=== PATIENT | male | born 2000 | race Caucasian/White ===

== ENCOUNTER 2024-05-03 12:57 | Emergency (ER) | payer OTHER, SELFPAY ==
[2024-05-03 13:10] VITALS: BP 122/74
--- NOTE | 2024-05-03 14:29 | ED.GENMED ---
History of Present Illness
General
Chief Complaint: Musculo-Skeletal Complaint
Source: patient
Time Seen by Provider: 05/03/24 14:14
Travel History
Have you had any contact with someone who has COVID-19?: No
Do you have any symptoms of coronavirus? Fever > 100 degrees, chills, cough, shortness of breath, sore throat, loss of taste or smell, muscle aches, or headache?: No
History of Present Illness
History of Present Illness:
24-year-old male presenting emergency department for evaluation of right ankle pain and swelling that started Friday evening after patient jumped off a friend's deck which she reports was around 4 to 5 feet high. Patient has had significant
difficulty ambulating since and continuous pain. No other injuries were sustained and patient denies any head injury.
Past History
Past History
ED Past Medical History: Psychiatric
ED Past Surgical History: None
Social History
Tobacco: Non-smoker
Alcohol: Occasional
Drug: None
Personal: Single
Living: with family
Review of Systems
Review of Systems
All Other Systems: ROS reviewed and negative except as documented in HPI and ROS
Phy Exam
Physical Exam
Physical Exam:
GENERAL: Alert , in no apparent distress
EYE: conjunctiva clear
Head: Normocephalic atraumatic
NECK: Supple,
ENT: mmm.
LUNGS: no acute respiratory distress
NEUROLOGICAL: Alert and oriented
SKIN: Warm and dry, skin intact.
MUSCULOSKELETAL: Moderate soft tissue swelling and ecchymosis to the right ankle concentrated around the lateral malleolus. No proximal tib-fib tenderness. No tenderness at the base of the fifth metatarsal. Easily palpable pedal and tibial
pulses. No laxity of the calcaneal tendon.
PSYCH: Normal and appropriate interaction.
Scores
Heart Failure Risk
Heart Failure Risk Score: Not Applicable
Heart Score for Chest Pain Patients
STEMI patient?: Not applicable
Withdrawal Assessment of Alcohol
Withdrawal Assessment Completed?: Not applicable
Course
Orders/Labs/Results
Orders:
Orders
05/03/24 13:12
Ankle, Right 3 view CR [CR Ankle - Right Min 3 Views *] Urgent
Comment:
Reason For Exam: right ankle pain jumped 4ft and twisted ankle
05/03/24 14:27
Splints/Slings/Crut- Treatment ONCE
Location: Right
Type of Splint: Short Leg
Comment: posterior
Ibuprofen [Motrin] 600 mg PO NOW STA
Vital Signs
Initial and Last Documented VS:
Initial Vital Signs
Temp Pulse Resp BP Pulse Ox
98.4 F 74 16 122/74 98
05/03/24 13:10 05/03/24 13:10 05/03/24 13:10 05/03/24 13:10 05/03/24 13:10
Last Documented Vital Signs
Temp Pulse Resp BP Pulse Ox
98.4 F 78 16 149/94 98
05/03/24 13:10 05/03/24 15:14 05/03/24 13:10 05/03/24 15:14 05/03/24 13:10
Procedures
Splinting/Sling Placement
Right Lower Leg:
Pre-splint extermity exam: neurovascular intact
Type of splint: posterior short leg
Splint material: other (3 inch Ortho-Glass)
Splint checked by provider?: Yes
Normal distal neurovascular exam?: Yes
MDM/Problems Addressed
Differential Diagnosis Includes:
Fracture, sprain, contusion
MDM/Problems Addressed:
24-year-old male presenting the emergency department for evaluation of right ankle pain/injury from a fall. X-ray was ordered from triage which shows a lateral malleolus and posterior malleolus fracture. Patient will require immobilization so we
will place a posterior short leg splint. Advised on RICE recommendations, importance of outpatient follow-up with orthopedics. Patient already has crutches. Continue NSAIDs/Tylenol as needed for pain.
*Radiology
Radiology exam reviewed: preliminary read by ED provider (Lateral and posterior malleolus fracture of the right ankle)
*Pulse Oximetry
Patient hypoxic: no
*Critical Care Note
Total Time (30-74mins, 75-104mins- exclusive of procedures): Not Applicable
ED Attending Note
-
Portions of this chart may have been created with voice recognition software.� Occasional wrong word or��sound alike� substitutions may have occurred due to the inherent limitations of voice recognition software.
Discharge Plan
Departure
Patient Disposition: Home (Routine Discharge)
Date of Disposition: 05/03/24
Time of Disposition: 14:29
Patient with high blood pressure during this ER visit?: No
Discharge Problem:
Fracture of right ankle, lateral malleolus
Instructions: Ankle Fracture (DC)
Referrals:
Agustín Carrillo MD [Active] - (Ortho)
Melva Sewell PA-C [Family Provider] -
Interventions
Interventions:
*Risk Screen - Suicide Last Done: 05/03/24 15:11
*General Assessment Last Done: 05/03/24 15:11
*Neglect/Abuse Screening Last Done: 05/03/24 15:11
*ED COVID-19 Vaccine History Last Done: 05/03/24 13:10
*Nursing Disposition Last Done: 05/03/24 15:14
ED-Musculoskeletal Assessment Last Done: 05/03/24 13:37
Discharge Date and Time
Discharge Date/Time: 05/03/24 15:15
Print Language: URDU
[2024-05-03] MEDS: MOTRIN 600 MG PO (14:49)
[2024-05-03 15:14] VITALS: BP 149/94
== END 2024-05-03 15:15 | disposition home or self-care (01) ==
LOC: EMR 12:57
PROVIDERS: EMERGENCY PHYSICIAN Emergency Medicine; FAMILY PHYSICIAN Physician Assistant Medical
DX: S82.61XA Displaced fracture of lateral malleolus of right fibula, initial encounter for closed fracture (principal); X50.1XXA Overexertion from prolonged static or awkward postures, initial encounter
CPT/HCPCS: 99283; 29515; 73610